=== PATIENT | female | born 1935 | race African-American/Black ===

== ENCOUNTER 2021-07-29 12:59 | Emergency (ER) | payer MEDICARE, BC ==
[~2021-07-29] VITALS: Ht 167.6 cm; Wt 80.0 kg
[2021-07-29] MEDS ORDERED: TOPUD PO (15:41)
[2021-07-29] MEDS ORDERED: MORP15TA67 MT (15:42)
[2021-07-29 16:00] VITALS: BP 139/78
== END 2021-07-29 16:20 | disposition home or self-care (01) ==
LOC: ER 12:59
DX: S70.02XA Contusion of left hip, initial encounter (principal); R10.32 Left lower quadrant pain; M81.0 Age-related osteoporosis without current pathological fracture; M19.90 Unspecified osteoarthritis, unspecified site; E78.00 Pure hypercholesterolemia, unspecified; I10 Essential (primary) hypertension; E03.9 Hypothyroidism, unspecified; Z88.6 Allergy status to analgesic agent; W01.0XXA Fall on same level from slipping, tripping and stumbling without subsequent striking against object, initial encounter; Y93.89 Activity, other specified; Y92.018 Other place in single-family (private) house as the place of occurrence of the external cause
CPT/HCPCS: 72192; 73502; 73700; 99284

== ENCOUNTER → 2024-01-27 | Outpatient (CLI) | payer MEDICARE, BC ==
[~2024-01-27] MED LIST: MORP15TA67 MT; TOPUD PO
== END | disposition home or self-care (01) ==
LOC: RAD 15:02
DX: S72.002D Fracture of unspecified part of neck of left femur, subsequent encounter for closed fracture with routine healing (principal); M85.852 Other specified disorders of bone density and structure, left thigh; X58.XXXD Exposure to other specified factors, subsequent encounter
CPT/HCPCS: 73502; 73552

== ENCOUNTER → 2024-08-05 | Outpatient (CLI) | payer MEDICARE, BC | END | disposition home or self-care (01) | LOC: MAMMO 11:10 | PROVIDERS: ATTEND Internal Medicine | DX: Z13.820 Encounter for screening for osteoporosis (principal); M85.88 Other specified disorders of bone density and structure, other site; M81.0 Age-related osteoporosis without current pathological fracture | CPT/HCPCS: 77080 ==

== ENCOUNTER → 2024-08-05 | Outpatient (CLI) | payer MEDICARE, BC | END | disposition home or self-care (01) | LOC: RAD 11:25 | DX: S72.092D Other fracture of head and neck of left femur, subsequent encounter for closed fracture with routine healing (principal); M16.12 Unilateral primary osteoarthritis, left hip; X58.XXXD Exposure to other specified factors, subsequent encounter | CPT/HCPCS: 73502; 73552 ==